=== PATIENT | male | born 1935 | race Caucasian/White ===

== ENCOUNTER 2018-04-09 20:06 | Inpatient (IN) | payer MEDICAID ==
[~2018-04-09 20:06] MED LIST: LORAZEPAM 2 MG INJ
[2018-04-09] MEDS: LORAZEPAM 2 MG INJ IV (20:08)
[2018-04-09 20:28] LABS: ADD MAN DIFF? NO
[2018-04-09 20:29] LABS: WHITE BLOOD COUNT 10.8 10^3/ul (4.8-10.8)
[2018-04-09 20:29] LABS: BASOPHIL # 0.1 10^3/ul (0.0-0.1); BASOPHILS % 0.6 % (0.0-2.0); EOSINOPHILS # 0.4 10^3/ul (0.0-0.5); HEMOGLOBIN 13.8 g/dl (14.0-18.0); LYMPHOCYTES # 4.5 10^3/ul (0.8-2.9); LYMPHOCYTES % 41.4 % (15.0-51.0); MEAN CORPUSCULAR HEMOGLOBIN 32.4 pg (29.0-33.0); MEAN CORPUSCULAR HGB CONC 32.1 g/dl (32.0-37.0); MEAN CORPUSCULAR VOLUME 100.9 fl (82.0-101.0); MEAN PLATELET VOLUME 10.5 fl (7.4-10.4); MONOCYTES % 9.1 % (0.0-11.0); NEUTROPHIL # 4.8 10^3/ul (1.6-7.5); NEUTROPHILS % 44.6 % (39.0-77.0); PLATELET COUNT 193 10^3/UL (140-415); RED BLOOD COUNT 4.26 10^6/ul (4.70-6.10); RED CELL DISTRIBUTION WIDTH 12.8 % (11.5-14.5)
[2018-04-09] MEDS: LEVETIRACETAM 1000 MG (PMX) 100 ML IVPB (20:30)
[2018-04-09] MEDS: SOD CHLORIDE 0.9% 500 ML IV (20:30)
[2018-04-09 20:49] LABS: INR 0.94; PROTIME 12.7 Sec (11.9-14.9)
[2018-04-09 20:55] LABS: ALANINE AMINOTRANSFERASE 14 IU/L (13-69); ALBUMIN 4.8 g/dl (3.3-4.9); ALBUMIN/GLOBULIN RATIO 1.02; ALKALINE PHOSPHATASE 80 IU/L (42-121); ANION GAP 14 (5-13); ASPARTATE AMINO TRANSFERASE 37 IU/L (15-46); BILIRUBIN,INDIRECT 0.5 mg/dl (0-1.1); BILIRUBIN,TOTAL 0.5 mg/dl (0.2-1.3); BLOOD UREA NITROGEN 20 mg/dl (7-20); CALCIUM 9.1 mg/dl (8.4-10.2); CARBON DIOXIDE 21 mmol/L (21-31); CHLORIDE 106 mmol/L (97-110); CREATININE 1.23 mg/dl (0.61-1.24); GLUCOSE 130 mg/dl (70-220); POTASSIUM 3.5 mmol/L (3.5-5.1); SODIUM 141 mmol/L (135-144); TOTAL PROTEIN 9.5 g/dl (6.1-8.1)
[2018-04-09 21:06] LABS: TROPONIN-I < 0.012 ng/ml (0.000-0.120)
[2018-04-09 23:26] LABS: ADD UMIC YES; UR ASCORBIC ACID NEGATIVE (NEGATIVE); UR BILIRUBIN (Dip) NEGATIVE (NEGATIVE); UR BLOOD (Dip) 1+ mg/dL (NEGATIVE); UR CLARITY CLEAR (CLEAR); UR COLOR STRAW (YELLOW); UR GLUCOSE (Dip) NEGATIVE (NEGATIVE); UR KETONES (Dip) NEGATIVE (NEGATIVE); UR LEUKOCYTE ESTERASE (Dip) NEGATIVE Leu/ul (NEGATIVE); UR NITRITE (Dip) NEGATIVE (NEGATIVE); UR RBC 3 /HPF (0-5); UR SPECIFIC GRAVITY (Dip) 1.008 (1.003-1.030); UR TOTAL PROTEIN (Dip) NEGATIVE (NEGATIVE); UR UROBILINOGEN (Dip) NEGATIVE (NEGATIVE); UR WBC 1 /HPF (0-5)
[2018-04-09 23:33] LABS: AMPHETAMINE/METHAMPHETAMINE Negative (NEGATIVE); BARBITURATES Negative (NEGATIVE); BENZODIAZEPINES Negative (NEGATIVE); CANNABINOIDS Negative (NEGATIVE); COCAINE Negative (NEGATIVE); OPIATES Negative (NEGATIVE)
[2018-04-10] MEDS ORDERED: LIDOCAINE 1% (MDV) 20 ML INJ SC
[2018-04-10] MEDS: LIDOCAINE 1% (MDV) 50 ML INJ SC (00:33)
[2018-04-10 01:04] LABS: CSF RBC 2000 /uL (0-0); CSF WBC 2 /cmm (0-10)
[2018-04-10 01:10] LABS: TOTAL PROTEIN,CSF 53 mg/dl (12-60)
[2018-04-10 01:10] LABS: GLUCOSE,CSF 63 mg/dl (50-80)
[2018-04-10 01:31] LABS: CSF COLOR PINKISH
[2018-04-10 01:31] LABS: CSF CLARITY SLIGHTLY HAZY; CSF#TUBES REC'D 1
[2018-04-10 01:32] LABS: CSF#TUBE COUNT TUBE#1
[2018-04-10 01:35] LABS: ETHANOL < 10.0 mg/dl; SALICYLATE < 1.0 mg/dl (5.0-30.0)
[2018-04-10 01:35] LABS: ACETAMINOPHEN < 10.0 ug/ml (10.0-30.0)
[2018-04-10] MEDS ORDERED: ALBUTEROL/IPRATROPIUM (NEB) 3 ML AMP HHN (02:00)
[2018-04-10] MEDS ORDERED: NACL 0.9% 3 ML SYG IV (02:00)
[2018-04-10] MEDS ORDERED: LORAZEPAM 2 MG INJ IV (02:00)
[2018-04-10] MEDS ORDERED: ONDANSETRON 4 MG INJ IV (02:00)
[2018-04-10] MEDS: DEXTROSE 5%-0.45% NACL 1,000 ML IV ×2 (02:10→11:29)
[2018-04-10 04:40] LABS: AMPHETAMINE/METHAMPHETAMINE Negative (NEGATIVE); BARBITURATES Negative (NEGATIVE); BENZODIAZEPINES Negative (NEGATIVE); CANNABINOIDS Negative (NEGATIVE); COCAINE Negative (NEGATIVE); OPIATES Negative (NEGATIVE)
[2018-04-10 06:17] LABS: ADD MAN DIFF? NO
[2018-04-10 06:30] LABS: BASOPHIL # 0.1 10^3/ul (0.0-0.1); BASOPHILS % 0.7 % (0.0-2.0); EOSINOPHILS # 0.5 10^3/ul (0.0-0.5); EOSINOPHILS % 6.5 % (0.0-7.0); HEMATOCRIT 39.1 % (42.0-52.0); LYMPHOCYTES # 1.9 10^3/ul (0.8-2.9); MEAN CORPUSCULAR HEMOGLOBIN 32.1 pg (29.0-33.0); MEAN CORPUSCULAR HGB CONC 33.2 g/dl (32.0-37.0); MEAN CORPUSCULAR VOLUME 96.5 fl (82.0-101.0); MEAN PLATELET VOLUME 10.5 fl (7.4-10.4); MONOCYTE # 0.7 10^3/ul (0.3-0.9); NEUTROPHIL # 4.3 10^3/ul (1.6-7.5); NEUTROPHILS % 57.5 % (39.0-77.0); PLATELET COUNT 173 10^3/UL (140-415); RED BLOOD COUNT 4.05 10^6/ul (4.70-6.10); RED CELL DISTRIBUTION WIDTH 12.2 % (11.5-14.5)
[2018-04-10 06:30] LABS: WHITE BLOOD COUNT 7.4 10^3/ul (4.8-10.8)
[2018-04-10 07:09] LABS: ALANINE AMINOTRANSFERASE 25 IU/L (13-69); ALBUMIN 4.1 g/dl (3.3-4.9); ALBUMIN/GLOBULIN RATIO 1.05; ALKALINE PHOSPHATASE 70 IU/L (42-121); ANION GAP 11 (5-13); ASPARTATE AMINO TRANSFERASE 34 IU/L (15-46); BILIRUBIN,INDIRECT 0.8 mg/dl (0-1.1); BILIRUBIN,TOTAL 0.8 mg/dl (0.2-1.3); BLOOD UREA NITROGEN 15 mg/dl (7-20); CALCIUM 8.5 mg/dl (8.4-10.2); CARBON DIOXIDE 26 mmol/L (21-31); CHLORIDE 105 mmol/L (97-110); CHOL/HDL RATIO 4.2 RATIO; CHOLESTEROL 170 mg/dl (100-200); CREATININE 0.93 mg/dl (0.61-1.24); GLUCOSE 111 mg/dl (70-220); HDL CHOLESTEROL 40 mg/dl (31-75); LDL CHOLESTEROL,CALCULATED 98 mg/dl; MAGNESIUM 2.2 mg/dl (1.7-2.5); POTASSIUM 3.5 mmol/L (3.5-5.1); SODIUM 142 mmol/L (135-144); TRIGLYCERIDES 162 mg/dl (0-149)
[2018-04-10 07:16] LABS: LACTIC ACID 1.4 mmol/L (0.5-2.0)
[2018-04-10 08:14] LABS: HEMOGLOBIN A1C 4.9 % (0-5.9)
[2018-04-10] MEDS: FAMOTIDINE 20 MG INJ IV (08:34)
[2018-04-10] MEDS: LEVETIRACETAM 500 MG (PMX) 100 ML IVPB ×2 (08:34→21:09)
[2018-04-10] MEDS: FERROUS SULFATE (EC) 325 MG TAB PO ×2 (13:00→20:21)
[2018-04-10] MEDS: DOCUSATE SODIUM 100 MG CAP PO (20:22)
[2018-04-10] MEDS: ATORVASTATIN 10 MG TAB PO (21:08)
[2018-04-11] MEDS: DEXTROSE 5%-0.45% NACL 1,000 ML IV ×2 (00:51→07:41)
[2018-04-11] MEDS ORDERED: VANCOMYCIN IV PER PHARMACY XX (05:00)
[2018-04-11] MEDS: VANCOMYCIN 1.25 GM in SOD CHLORIDE 0.9% 250 ML IVPB (05:32)
[2018-04-11 06:02] LABS: ADD MAN DIFF? NO
[2018-04-11 06:06] LABS: WHITE BLOOD COUNT 7.3 10^3/ul (4.8-10.8)
[2018-04-11 06:06] LABS: BASOPHILS % 0.6 % (0.0-2.0); EOSINOPHILS # 0.8 10^3/ul (0.0-0.5); EOSINOPHILS % 10.9 % (0.0-7.0); HEMATOCRIT 36.9 % (42.0-52.0); HEMOGLOBIN 12.2 g/dl (14.0-18.0); LYMPHOCYTES # 2.3 10^3/ul (0.8-2.9); LYMPHOCYTES % 31.9 % (15.0-51.0); MEAN CORPUSCULAR HEMOGLOBIN 32.3 pg (29.0-33.0); MEAN CORPUSCULAR HGB CONC 33.1 g/dl (32.0-37.0); MEAN CORPUSCULAR VOLUME 97.6 fl (82.0-101.0); MEAN PLATELET VOLUME 10.8 fl (7.4-10.4); MONOCYTE # 0.8 10^3/ul (0.3-0.9); MONOCYTES % 10.8 % (0.0-11.0); NEUTROPHIL # 3.3 10^3/ul (1.6-7.5); NEUTROPHILS % 45.7 % (39.0-77.0); PLATELET COUNT 169 10^3/UL (140-415); RED BLOOD COUNT 3.78 10^6/ul (4.70-6.10); RED CELL DISTRIBUTION WIDTH 12.6 % (11.5-14.5)
[2018-04-11 06:50] LABS: ANION GAP 5 (5-13); BLOOD UREA NITROGEN 12 mg/dl (7-20); CALCIUM 8.3 mg/dl (8.4-10.2); CARBON DIOXIDE 30 mmol/L (21-31); CHLORIDE 107 mmol/L (97-110); CREATININE 1.16 mg/dl (0.61-1.24); GLUCOSE 106 mg/dl (70-220); MAGNESIUM 2.2 mg/dl (1.7-2.5); PHOSPHORUS 3.7 mg/dl (2.5-4.9); POTASSIUM 3.8 mmol/L (3.5-5.1); SODIUM 142 mmol/L (135-144)
[2018-04-11] MEDS: DOCUSATE SODIUM 100 MG CAP PO ×2 (08:12→20:17)
[2018-04-11] MEDS: DOLUTEGRAVIR SODIUM 50 MG TABLET PO (08:12)
[2018-04-11] MEDS: ASPIRIN (EC) 81 MG TAB PO (08:12)
[2018-04-11] MEDS: BENAZEPRIL 40 MG TAB PO (08:13)
[2018-04-11] MEDS: FERROUS SULFATE (EC) 325 MG TAB PO ×3 (08:13→20:17)
[2018-04-11] MEDS: FAMOTIDINE 20 MG INJ IV (08:13)
[2018-04-11] MEDS: AMLODIPINE 10 MG TAB PO (08:13)
[2018-04-11] MEDS: LEVETIRACETAM 500 MG (PMX) 100 ML IVPB ×2 (08:33→20:11)
[2018-04-11] MEDS: EMTRICITABINE/TENOFOV ALAFENAM 1 EACH TABLET PO (08:55)
[2018-04-11] MEDS: ATORVASTATIN 10 MG TAB PO (20:17)
[2018-04-12] MEDS: VANCOMYCIN 1 GM 250 ML IVPB (06:37)
[2018-04-12] MEDS: ASPIRIN (EC) 81 MG TAB PO (08:01)
[2018-04-12] MEDS: EMTRICITABINE/TENOFOV ALAFENAM 1 EACH TABLET PO (08:01)
[2018-04-12] MEDS: DOLUTEGRAVIR SODIUM 50 MG TABLET PO (08:01)
[2018-04-12] MEDS: FERROUS SULFATE (EC) 325 MG TAB PO ×3 (08:01→21:03)
[2018-04-12] MEDS: DOCUSATE SODIUM 100 MG CAP PO ×2 (08:01→21:03)
[2018-04-12] MEDS: BENAZEPRIL 40 MG TAB PO (08:01)
[2018-04-12] MEDS: AMLODIPINE 10 MG TAB PO (08:02)
[2018-04-12] MEDS: FAMOTIDINE 20 MG INJ IV (08:07)
[2018-04-12] MEDS: LEVETIRACETAM 500 MG (PMX) 100 ML IVPB ×2 (08:07→21:02)
[2018-04-12 10:41] LABS: LYMPHOCYTE - % CD4 (HELPER) 31 % (30-61); LYMPHOCYTE - %CD8 (SUPPRESSOR) 30 % (12-42); LYMPHOCYTE - ABSOLUTE 2022 cells/uL (850-3900); LYMPHOCYTE - ABSOLUTE CD4 624 cells/uL (490-1740); LYMPHOCYTE - ABSOLUTE CD8 609 cells/uL (180-1170); LYMPHOCYTE - CD4/CD8 RATIO 1.02 (0.86-5.00)
[2018-04-12] MEDS: ATORVASTATIN 10 MG TAB PO (21:03)
[2018-04-13] MEDS: VANCOMYCIN 1 GM 250 ML IVPB (05:48)
[2018-04-13] MEDS: FAMOTIDINE 20 MG INJ IV (09:00)
[2018-04-13] MEDS: BENAZEPRIL 40 MG TAB PO (09:01)
[2018-04-13] MEDS: ASPIRIN (EC) 81 MG TAB PO (09:01)
[2018-04-13] MEDS: DOLUTEGRAVIR SODIUM 50 MG TABLET PO (09:01)
[2018-04-13] MEDS: DOCUSATE SODIUM 100 MG CAP PO (09:01)
[2018-04-13] MEDS: AMLODIPINE 10 MG TAB PO (09:01)
[2018-04-13] MEDS: FERROUS SULFATE (EC) 325 MG TAB PO ×2 (09:02→12:59)
[2018-04-13] MEDS: LEVETIRACETAM 500 MG (PMX) 100 ML IVPB (09:13)
[2018-04-13] MEDS: EMTRICITABINE/TENOFOV ALAFENAM 1 EACH TABLET PO (11:41)
== END 2018-04-13 17:14 | disposition home or self-care (01) | DRG 101 ==
LOC: TEL 04-10 00:24 → E/R 20:06 → TEL 04-12 09:15
DX: G40.909 Epilepsy, unspecified, not intractable, without status epilepticus (principal); E78.5 Hyperlipidemia, unspecified; I10 Essential (primary) hypertension; G93.89 Other specified disorders of brain; Z86.73 Personal history of transient ischemic attack (TIA), and cerebral infarction without residual deficits
CPT/HCPCS: 36415; 70450; 70553; 71045; 80048; 80053; 80061; 80307; 81001; 82945; 83036; 83605; 83735; 84100; 84157; 84443; 84484; 85025; 85610; 86360; 87040; 87070; 87536; 89051; 92610; 95819; 96374; 96375; 97161; 99285-25